=== PATIENT | male | born 1980 | race African-American/Black ===

== ENCOUNTER 2017-06-20 07:30 | Emergency (ER) | payer OTHER ==
[~2017-06-20] VITALS: Ht 170.2 cm; Wt 58.1 kg
[2017-06-20] MEDS ORDERED: NORCO 5-325 TA1 EACH PO (10:29)
[2017-06-20 10:58] VITALS: BP 118/78
== END 2017-06-20 10:59 | disposition home or self-care (01) ==
LOC: ER 07:30
DX: S02.82XA Fracture of other specified skull and facial bones, left side, initial encounter for closed fracture (principal); S50.811A Abrasion of right forearm, initial encounter; R07.89 Other chest pain; R10.9 Unspecified abdominal pain; F10.99 Alcohol use, unspecified with unspecified alcohol-induced disorder; F12.10 Cannabis abuse, uncomplicated; Y00.XXXA Assault by blunt object, initial encounter; Y93.89 Activity, other specified; Y92.89 Other specified places as the place of occurrence of the external cause; Y99.8 Other external cause status

== ENCOUNTER 2019-09-01 04:58 | Emergency (ER) | payer OTHER ==
[~2019-09-01] VITALS: Ht 170.2 cm; Wt 72.6 kg
[~2019-09-01 04:58] MED LIST: NORCO 5-325 TA1 EACH PO
[2019-09-01 05:34] VITALS: BP 156/106
[2019-09-01] MEDS ORDERED: NOHOMEMEDICATIONS (05:42)
== END 2019-09-01 06:07 | disposition home or self-care (01) ==
LOC: ER 04:58
DX: Z00.00 Encounter for general adult medical examination without abnormal findings (principal); F17.210 Nicotine dependence, cigarettes, uncomplicated